=== PATIENT | male | born 2000 | race Caucasian/White ===

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

== ENCOUNTER 2020-02-14 10:07 | Observation (INO) | payer OTHER ==
[~2020-02-14] VITALS: Ht 182.9 cm; Wt 63.6 kg
[~2020-02-14 10:07] MED LIST: DOXY100T PO; HYDR-3164 PO
[2020-02-14 10:56] LABS: BILIRUBIN,URINE NEGATIVE (NEG); CLARITY,URINE CLEAR; COLOR,URINE YELLOW; NITRITE,URINE NEGATIVE (NEG); PROTEIN,URINE NEGATIVE (NEG-TRACE); UROBILINOGEN,URINE 0.2 mg/dL (0.2 mg/dL)
[2020-02-14 11:02] LABS: AMORPHOUS SEDIMENT,UR PRESENT /HPF; HYALINE CASTS, URINE OCCASIONAL /HPF; RBC,URINE 0 /HPF (0-2)
[2020-02-14 11:03] LABS: BACTERIA,URINE FEW /HPF (0-FEW)
--- NOTE | 2020-02-14 11:21 | PHYS DOC ---
Past Medical History Past Medical History: No Pertinent History Past Surgical History: No Surgical History Smoking Status: Never Smoker Alcohol Use: None Drug Use: Marijuana General Adult EDM: Chief Complaint: MALE UROGENITAL PROBLEMS HPI: HPI: Patient is a 19 year old male who presents with complaints of right upper and lower abdominal pain for the past 2 weeks, patient states he is not sure the exact date or time when the pain started nor he is not sure exactly what he was doing when the pain started. Patient reports his pain to 4/10 pain on a 1-10 pain scale. Patient denies any constipation or bowel problems stating his last normal BM was yesterday and reports going every day without problems. Patient denies any cough fever chills shortness of breath nasal congestion or visual changes. Patient denies any COVID 19 virus concerns nor does not wish to be tested today. Patient denies any chest pain or swelling of his extremities. Patient denies any nausea vomiting or diarrhea. Patient denies any current problems urinating, however reports that off-and-on over the past 2 weeks he has a hard time getting a stream started, however denies this problem today. Patient denies any back pain flank pain or pain in his joints. He denies any skin rashes, headaches, weaknesses, or sensory changes. Patient denies any increased urination or increased thirst. Patient denies any swelling of his glands. Patient denies any recent depressions or anxieties, patient denies HI SI. Patient states that he was seen here 2 years ago for the same thing and was told nothing was wrong and was sent home. Review of Systems: Review of Systems: Constitutional: Denies fever or chills. Eyes: Denies change in visual acuity. HENT: Denies nasal congestion or sore throat. Respiratory: Denies cough or shortness of breath. Cardiovascular: Denies chest pain or edema. GI: Denies nausea, vomiting, bloody stools or diarrhea. Patient complains of left upper and lower abdominal quadrant pain that increases with movement. : Denies current dysuria, however states that over the past 2 weeks he has had intermittent problems with starting a urine stream. Patient denies any testicular swelling or pain or discomfort. Musculoskeletal: Denies back pain or joint pain. Integument: Denies rash. Neurologic: Denies headache, focal weakness or sensory changes. Endocrine: Denies polyuria or polydipsia. Lymphatic: Denies swollen glands. Psychiatric: Denies depression or anxiety. Denies HI/SI. Heart Score: Risk Factors: Risk Factors: DM, Current or recent (<one month) smoker, HTN, HLP, family history of CAD, obesity. Risk Scores: Score 0 - 3: 2.5% MACE over next 6 weeks - Discharge Home Score 4 - 6: 20.3% MACE over next 6 weeks - Admit for Clinical Observation Score 7 - 10: 72.7% MACE over next 6 weeks - Early Invasive Strategies Family History: Family History: Patient states that his father has high blood pressure, paternal grandfather of aneurysm/stroke, maternal grandfather has of cardiac complications, mother has no significant health concerns other than arthritis pains. Current Medications: Patient denies taking any medications at home. Allergies: Allergies: Patient denies any allergies to medications, denies any seasonal allergies. Allergies Coded Allergies Type Severity Reaction Last Updated Verified No Known Drug Allergies 01/29/18 No Physical Exam: PE: Constitutional: Well developed, well nourished, no acute distress, non-toxic appearance. HENT: Normocephalic, atraumatic, bilateral external ears normal, oropharynx mo ist, no oral exudates, nose normal. Eyes: PERRLA, EOMI, conjunctiva normal, no discharge. Pupils 4 mm Neck: Normal range of motion, no tenderness, supple, no stridor. Cardiovascular:Heart rate regular rhythm, no murmur heart sounds S1-S2 Lungs & Thorax: Bilateral breath sounds clear to auscultation all lung castro. Abdomen: Bowel sounds normal, soft, no masses, no pulsatile masses. Patient has tenderness to palpation right lower quadrant no pain to the right upper quadrant, no rebound tenderness, negative psoas sign, negative Crowley sign. Skin: Warm, dry, no erythema, no rash. Back: No tenderness, no CVA tenderness. Extremities: No tenderness, no cyanosis, no clubbing, ROM intact, no edema. Neurologic: Alert and oriented X 3, normal motor function, normal sensory function, no focal deficits noted. Psychologic: Affect normal, judgement normal, mood normal. Current Patient Data: Labs: Laboratory Tests Test 02/14/20 10:30 Urine Collection Type Unknown Urine Color Yellow Urine Clarity Clear Urine pH 7.0 (<5.0-8.0) Urine Specific [place] 1.015 (1.000-1.030) Urine Protein Negative mg/dL (NEG-TRACE) Urine Glucose (UA) Negative mg/dL (NEG) Urine Ketones (Stick) Negative mg/dL (NEG) Urine Blood Negative (NEG) Urine Nitrite Negative (NEG) Urine Bilirubin Negative (NEG) Urine Urobilinogen Dipstick 0.2 mg/dL (0.2 mg/dL) Urine Leukocyte Esterase Trace (NEG) Urine RBC 0 /HPF (0-2) Urine WBC 5-10 /HPF (0-4) Urine Squamous Epithelial Cells Few /LPF Urine Amorphous Sediment Present /HPF Urine Bacteria Few /HPF (0-FEW) Urine Hyaline Casts Occasional /HPF Urine Mucus Slight /LPF Vital Signs: Vital Signs Date Time Temp Pulse Resp B/P (MAP) Pulse Ox O2 Delivery O2 Flow Rate FiO2 02/14/20 10:10 98.5 69 16 123/72 (89) 99 Room Air 98.5 EKG: EKG: [] Radiology/Procedures: Radiology/Procedures: PATIENT: LAMIN WATKINS ACCOUNT: [id number] : 2000 LOCATION: ER AGE: 19 SEX: M EXAM STATUS: REG ER ORD. PHYSICIAN: TAYE RASHEED APRN REASON: RIGHT UPPER AND LOWER ABDOMEN PAIN WITH PALPATION, DIFFICULTY URINATION PROCEDURE: CT ABD PELV W/ IV CONTRST ONLY CT ABD PELV W/ IV CONTRST ONLY History: Reason: RIGHT UPPER AND LOWER ABDOMEN PAIN WITH PALPATION, DIFFICULTY URINATION Comparison: 01/29/2018 Technique: After administration of intravenous contrast, helical CT of the abdomen and pelvis was performed from the lung bases through the ischial tuberosities. Coronal and sagittal reconstructions were obtained. 75 mL of Omnipaque 300 were used. One or more of the following dose reduction techniques were utilized: Automated exposure control (AEC), Adjustment of mA and/or kV according to patient size, Use of iterative reconstruction technique such as ASiR, CT scan done according to ALARA and image gently/image wisely Abdomen Findings: The visualized lung bases are clear. The liver, gallbladder, pancreas, spleen, and bilateral adrenal glands are normal. Symmetric renal enhancement. There is no focal renal mass. There is no hydronephrosis. Small bowel intussusception in the left hemiabdomen measuring approximately 7 cm in length. The visualized loops of large bowel are normal. There is no evidence of bowel obstruction. Appendix is normal. There is no free fluid. There is no mesenteric or retroperitoneal adenopathy. The abdominal aorta is normal in caliber. Small outpouching along the anterosuperior aspect of the bladder. Mild bladder wall thickening. No pelvic free fluid. There is no pelvic or inguinal adenopathy. There is no acute bony abnormality. IMPRESSION: 1. Mild circumferential bladder wall thickening, which could relate to underdistention or potentially cystitis. Consider urinalysis. 2. Small bowel intussusception in the left hemiabdomen measuring approximately 7 cm in length. This is of uncertain clinical significance, and can be seen as a transient/incidental phenomenon in a patient of this age. Correlate with clinical findings. 3. 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 Electronically signed by: Domonique Moya MD (02/14/2020 12:41 PM) [id number] DICTATED and SIGNED BY: DOMONIQUE MOYA MD DATE: 02/14/20 1241 Course & Med Decision Making: Course & Med Decision Making Pertinent Labs and Imaging studies reviewed. (See chart for details) 19-year-old male patient vital signs stable presented to the emergency department today with complaints of abdominal pain off and on for the past 2 weeks on his right upper and lower quadrants. Patient also reports he has a hard time getting a urine stream started intermittently over the past 2 weeks as well. Patient currently denied any urinary problems today, and denied any testicular pain or swelling or discomfort. Patient states that he has normal bowel movements every day and had a normal one yesterday and is not concerned for constipation. Patient's physical exam was concerning for possible appendicitis related to increased pain with palpation of the right lower quadrant. However patient had a negative psoas sign and negative Crowley sign. Patient had no rebound tenderness. Patient's bowel sounds were normal. Patient's testicular exam was not concerning for acute infectious process. CT did show a small bowel intussusception. Patient's blood work was concerning for leukopenia and neutropenia with a white blood cell count of 3.1 and neutrophil count of 1.5. Patient does not look toxic. Discussed findings with patient and recommendation for admission, patient was amendable to this plan. This case was discussed with Dr. Choe who agreed to see the patient but requested he be admitted under general medicine. Consulted and discussed patient case with Dr. Porras who agreed to take patient admission to [facility]. Dragon Disclaimer: Dragon Disclaimer: This electronic medical record was generated, in whole or in part, using a voice recognition dictation system. Departure Departure Impression: Primary Impression: Abdominal pain, right lower quadrant Additional Impressions: Intussusception of small bowel Leukopenia Qualified Codes: D72.819 - Decreased white blood cell count, unspecified Neutropenia Qualified Codes: D70.9 - Neutropenia, unspecified Disposition: 09 ADMITTED INPATIENT Admitting Physician: NELS (DR. PORRAS) Condition: STABLE Referrals: NO PCP (PCP) TAYE RASHEED APRN Feb 14, 2020 11:21
[2020-02-14 11:53] LABS: CALCIUM 8.8 mg/dL (8.5-10.1); CREATININE 1.1 mg/dL (0.7-1.3); GFR 86.2; POTASSIUM 3.9 mmol/L (3.5-5.1)
[2020-02-14 11:58] LABS: ALBUMIN/GLOBULIN RATIO 1.3 (1.0-1.7); TOTAL BILIRUBIN 0.4 mg/dL (0.2-1.0); TOTAL PROTEIN 7.2 g/dL (6.4-8.2)
[2020-02-14 12:00] LABS: BASO % 1 % (0-3); EOS % 1 % (0-3); HEMATOCRIT 41.3 % (39.0-53.0); HEMOGLOBIN 14.1 g/dL (13.0-17.5); LYMPH # 1.3 x10^3/uL (1.0-4.8); LYMPH % 42 % (24-48); MEAN CORPUSCULAR HEMOGLOBIN 30 pg (25-35); MEAN CORPUSCULAR HGB CONC 34 g/dL (31-37); MEAN CORPUSCULAR VOLUME 87 fL (79-100); MONO # 0.3 x10^3/uL (0.0-1.1); MONO % 9 % (0-9); NEUT # 1.5 x10^3/uL (1.8-7.7); NEUT % 48 % (31-73); PLATELET COUNT 190 x10^3/uL (140-400); RED BLOOD COUNT 4.73 x10^6/uL (4.30-5.70); RED CELL DISTRIBUTION WIDTH 13.1 % (11.5-14.5); WHITE BLOOD COUNT 3.1 x10^3/uL (4.0-11.0)
[2020-02-14] MEDS ORDERED: CONTRAST GIVEN. MC PRN (12:00)
[2020-02-14] MEDS ORDERED: IOHEXOL 300 MG/ML 100ML VIAL. IV ONE (12:30)
--- NOTE | 2020-02-14 12:45 | RAD ---
CT ABD PELV W/ IV CONTRST ONLY History: Reason: RIGHT UPPER AND LOWER ABDOMEN PAIN WITH PALPATION, DIFFICULTY URINATION Comparison: 01/29/2018 Technique: After administration of intravenous contrast, helical CT of the abdomen and pelvis was performed from the lung bases through the ischial tuberosities. Coronal and sagittal reconstructions were obtained. 75 mL of Omnipaque 300 were used. One or more of the following dose reduction techniques were utilized: Automated exposure control (AEC), Adjustment of mA and/or kV according to patient size, Use of iterative reconstruction technique such as ASiR, CT scan done according to ALARA and image gently/image wisely Abdomen Findings: The visualized lung bases are clear. The liver, gallbladder, pancreas, spleen, and bilateral adrenal glands are normal. Symmetric renal enhancement. There is no focal renal mass. There is no hydronephrosis. Small bowel intussusception in the left hemiabdomen measuring approximately 7 cm in length. The visualized loops of large bowel are normal. There is no evidence of bowel obstruction. Appendix is normal. There is no free fluid. There is no mesenteric or retroperitoneal adenopathy. The abdominal aorta is normal in caliber. Small outpouching along the anterosuperior aspect of the bladder. Mild bladder wall thickening. No pelvic free fluid. There is no pelvic or inguinal adenopathy. There is no acute bony abnormality. IMPRESSION: 1. Mild circumferential bladder wall thickening, which could relate to underdistention or potentially cystitis. Consider urinalysis. 2. Small bowel intussusception in the left hemiabdomen measuring approximately 7 cm in length. This is of uncertain clinical significance, and can be seen as a transient/incidental phenomenon in a patient of this age. Correlate with clinical findings. 3. 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 Electronically signed by: Jaziel Moya MD (02/14/2020 12:41 PM) [id number]
[2020-02-14] MEDS ORDERED: DOCUSATE SODIUM 100 MG CAPSULE. PO PRN (14:45)
[2020-02-14] MEDS ORDERED: ACETAMINOPHEN 325 MG TABLET. PO PRN (14:45)
[2020-02-14] MEDS ORDERED: ONDANSETRON PF 4 MG/2 ML VIAL. IV PRN (14:45)
[2020-02-14] MEDS ORDERED: LORazepam 0.5 MG TABLET PO PRN (14:45)
[2020-02-14] MEDS ORDERED: ZOLPIDEM 5 MG TABLET. PO PRN (14:45)
[2020-02-14] MEDS ORDERED: ALBUTEROL SULFATE 2.5 MG/3 ML NEBU. NEB PRN (14:45)
[2020-02-14] MEDS ORDERED: guaiFENesin ORAL 200 MG/10 ML LIQUID. PO PRN (14:45)
[2020-02-14] MEDS ORDERED: HYDROcodone/APAP 5/325MG 1 TAB TABLET PO PRN (14:45)
[2020-02-14] MEDS ORDERED: KETOROLAC 15 MG/ML VIAL. IVP PRN (15:00)
[2020-02-14] MEDS ORDERED: ENOXAPARIN 40 MG/0.4 ML SYRINGE. SQ SCH (15:00)
--- NOTE | 2020-02-14 15:36 | PDOC1 ---
History and Physical Date of Admission Date of Admission 02/14/2020 Identification/Chief Complaint Chief Complaint My stomach hurts Source Source: Chart review, Patient History of Present Illness History of Present Illness Patient is a 19 year old male whto was in his usual state of health until the morning of his admission when he presented sudden onset of right lower quadrant pain , patient denied dietary transgression, no sick contacts, no travel outside the area, patient denies fever chills or diaphoresis, no hematochezia, no association with food intake, patient at the time of my visit is in no apparent distress, he was flund to have an intussuseption on CT abdomen reason why we were asked to admit patient. Patient had a simialr episode more or less 2 years ago and feel it is a reocurrence of the previous episode. he was treated with IV antibiotics on his past episode. No definitive diagnosis was given to alex at that time. Patient was informed about the different avenues that need to be examined so we can try to alleviate the patien's suffering. He denies history of Crohn or UC, no anorexia no loss of common sense or smell. Patient will be admitted for further evaluation and treatment Past Medical History Past Medical History No pertinent past medical history Past Surgical History Past Surgical History: Other Family History Family History: No Significant Social History Smoke: No Drugs: Marijuana Current Problem List Problem List Problems Medical Problems: (1) Abdominal pain, right lower quadrant Status: Acute (2) Intussusception of small bowel Status: Acute (3) Leukopenia Status: Acute (4) Neutropenia Status: Acute Current Medications Current Medications Current Medications Medications (Trade) Dose Ordered Sig/Arielle Start Time Stop Time Status Last Admin Dose Admin Acetaminophen (Tylenol) 650 mg PRN Q4HRS PRN 02/14/20 14:45 Acetaminophen/ Hydrocodone Bitart (Lortab 5/325) 1 tab PRN Q6HRS PRN 02/14/20 14:45 Albuterol Sulfate (Ventolin Neb Soln) 2.5 mg PRN Q4HRS PRN 02/14/20 14:45 Docusate Sodium (Colace) 100 mg PRN BID PRN 02/14/20 14:45 Enoxaparin Sodium (Lovenox 40mg Syringe) 40 mg Q24H 02/14/20 15:00 Guaifenesin (Robitussin) 200 mg PRN Q4HRS PRN 02/14/20 14:45 Info (CONTRAST GIVEN -- Rx MONITORING) 1 each PRN DAILY PRN 02/14/20 12:00 02/16/20 11:59 Iohexol (Omnipaque 300 Mg/ml) 75 ml 1X ONCE 02/14/20 12:30 02/14/20 12:31 DC 02/14/20 12:25 75 ML Ketorolac Tromethamine (Toradol 15mg Vial) 15 mg PRN Q6HRS PRN 02/14/20 15:00 02/19/20 14:59 Lorazepam (Ativan) 0.5 mg PRN Q4HRS PRN 02/14/20 14:45 Ondansetron HCl (Zofran) 4 mg PRN Q4HRS PRN 02/14/20 14:45 Sodium Chloride 1,000 ml @ 100 mls/hr Q10H 02/14/20 14:36 Zolpidem Tartrate (Ambien) 5 mg PRN QHS PRN 02/14/20 14:45 Allergies Allergies Allergies Coded Allergies Type Severity Reaction Last Updated Verified No Known Drug Allergies 01/29/18 No ROS Review of System CONSTITUTIONAL: No fever or chills EYES: No recent changes SKIN: No rash or itching CARDIOVASCULAR: No chest pain, syncope, palpitations, or edema RESPIRATORY: No SOB or cough GASTROINTESTINAL: No nausea, vomiting or abdominal pain NEUROLOGICAL: No headaches or weakness ENDOCRINE: No cold or heat intolerance GENITOURINARY: No urgency or frequency of urination MUSCULOSKELETAL: No back pain or joint pain LYMPHATICS: No enlarged lymph nodes PSYCHIATRIC: No anxiety or depression Physical Exam Physical Exam GEN.: No apparent distress. Alert and oriented. HEENT: Head is normocephalic, atraumatic NECK: Supple. LUNGS: Clear to auscultation. HEART: RRR, S1, S2 present. Peripheral pulses intact ABDOMEN: Soft, nontender. Positive bowel sounds. EXTREMITIES: Without any cyanosis. NEUROLOGIC: Normal speech, normal tone PSYCHIATRIC: Normal affect, normal mood. SKIN: No ulcerations Vitals Vitals Vital Signs Date Time Temp Pulse Resp B/P (MAP) Pulse Ox O2 Delivery O2 Flow Rate FiO2 02/14/20 15:20 60 16 110/64 (79) 99 Room Air 10/6/20 10:10 98.5 98.5 Labs Labs Laboratory Tests Test 02/14/20 10:30 02/14/20 11:33 02/14/20 14:32 Urine Collection Type Unknown Urine Color Yellow Urine Clarity Clear Urine pH 7.0 (<5.0-8.0) Urine Specific [place] 1.015 (1.000-1.030) Urine Protein Negative mg/dL (NEG-TRACE) Urine Glucose (UA) Negative mg/dL (NEG) Urine Ketones (Stick) Negative mg/dL (NEG) Urine Blood Negative (NEG) Urine Nitrite Negative (NEG) Urine Bilirubin Negative (NEG) Urine Urobilinogen Dipstick 0.2 mg/dL (0.2 mg/dL) Urine Leukocyte Esterase Trace (NEG) Urine RBC 0 /HPF (0-2) Urine WBC 5-10 /HPF (0-4) Urine Squamous Epithelial Cells Few /LPF Urine Amorphous Sediment Present /HPF Urine Bacteria Few /HPF (0-FEW) Urine Hyaline Casts Occasional /HPF Urine Mucus Slight /LPF White Blood Count 3.1 x10^3/uL (4.0-11.0) Red Blood Count 4.73 x10^6/uL (4.30-5.70) Hemoglobin 14.1 g/dL (13.0-17.5) Hematocrit 41.3 % (39.0-53.0) Mean Corpuscular Volume 87 fL (79-100) Mean Corpuscular Hemoglobin 30 pg (25-35) Mean Corpuscular Hemoglobin Concent 34 g/dL (31-37) Red Cell Distribution Width 13.1 % (11.5-14.5) Platelet Count 190 x10^3/uL (140-400) Neutrophils (%) (Auto) 48 % (31-73) Lymphocytes (%) (Auto) 42 % (24-48) Monocytes (%) (Auto) 9 % (0-9) Eosinophils (%) (Auto) 1 % (0-3) Basophils (%) (Auto) 1 % (0-3) Neutrophils # (Auto) 1.5 x10^3/uL (1.8-7.7) Lymphocytes # (Auto) 1.3 x10^3/uL (1.0-4.8) Monocytes # (Auto) 0.3 x10^3/uL (0.0-1.1) Eosinophils # (Auto) 0.0 x10^3/uL (0.0-0.7) Basophils # (Auto) 0.0 x10^3/uL (0.0-0.2) Sodium Level 142 mmol/L (136-145) Potassium Level 3.9 mmol/L (3.5-5.1) Chloride Level 105 mmol/L (98-107) Carbon Dioxide Level 31 mmol/L (21-32) Anion Gap 6 (6-14) Blood Urea Nitrogen 12 mg/dL (8-26) Creatinine 1.1 mg/dL (0.7-1.3) Estimated GFR (Cockcroft-Gault) 86.2 BUN/Creatinine Ratio 11 (6-20) Glucose Level 92 mg/dL (70-99) Calcium Level 8.8 mg/dL (8.5-10.1) Total Bilirubin 0.4 mg/dL (0.2-1.0) Aspartate Amino Transf (AST/SGOT) 14 U/L (15-37) Alanine Aminotransferase (ALT/SGPT) 15 U/L (16-63) Alkaline Phosphatase 58 U/L (46-116) Total Protein 7.2 g/dL (6.4-8.2) Albumin 4.0 g/dL (3.4-5.0) Albumin/Globulin Ratio 1.3 (1.0-1.7) Lipase 347 U/L (73-393) SARS-CoV-2 Antigen (Rapid) Negative (NEGATIVE) Laboratory Tests Test 02/14/20 10:30 02/14/20 11:33 02/14/20 14:32 Urine Collection Type Unknown Urine Color Yellow Urine Clarity Clear Urine pH 7.0 (<5.0-8.0) Urine Specific [place] 1.015 (1.000-1.030) Urine Protein Negative mg/dL (NEG-TRACE) Urine Glucose (UA) Negative mg/dL (NEG) Urine Ketones (Stick) Negative mg/dL (NEG) Urine Blood Negative (NEG) Urine Nitrite Negative (NEG) Urine Bilirubin Negative (NEG) Urine Urobilinogen Dipstick 0.2 mg/dL (0.2 mg/dL) Urine Leukocyte Esterase Trace (NEG) Urine RBC 0 /HPF (0-2) Urine WBC 5-10 /HPF (0-4) Urine Squamous Epithelial Cells Few /LPF Urine Amorphous Sediment Present /HPF Urine Bacteria Few /HPF (0-FEW) Urine Hyaline Casts Occasional /HPF Urine Mucus Slight /LPF White Blood Count 3.1 x10^3/uL (4.0-11.0) Red Blood Count 4.73 x10^6/uL (4.30-5.70) Hemoglobin 14.1 g/dL (13.0-17.5) Hematocrit 41.3 % (39.0-53.0) Mean Corpuscular Volume 87 fL (79-100) Mean Corpuscular Hemoglobin 30 pg (25-35) Mean Corpuscular Hemoglobin Concent 34 g/dL (31-37) Red Cell Distribution Width 13.1 % (11.5-14.5) Platelet Count 190 x10^3/uL (140-400) Neutrophils (%) (Auto) 48 % (31-73) Lymphocytes (%) (Auto) 42 % (24-48) Monocytes (%) (Auto) 9 % (0-9) Eosinophils (%) (Auto) 1 % (0-3) Basophils (%) (Auto) 1 % (0-3) Neutrophils # (Auto) 1.5 x10^3/uL (1.8-7.7) Lymphocytes # (Auto) 1.3 x10^3/uL (1.0-4.8) Monocytes # (Auto) 0.3 x10^3/uL (0.0-1.1) Eosinophils # (Auto) 0.0 x10^3/uL (0.0-0.7) Basophils # (Auto) 0.0 x10^3/uL (0.0-0.2) Sodium Level 142 mmol/L (136-145) Potassium Level 3.9 mmol/L (3.5-5.1) Chloride Level 105 mmol/L (98-107) Carbon Dioxide Level 31 mmol/L (21-32) Anion Gap 6 (6-14) Blood Urea Nitrogen 12 mg/dL (8-26) Creatinine 1.1 mg/dL (0.7-1.3) Estimated GFR (Cockcroft-Gault) 86.2 BUN/Creatinine Ratio 11 (6-20) Glucose Level 92 mg/dL (70-99) Calcium Level 8.8 mg/dL (8.5-10.1) Total Bilirubin 0.4 mg/dL (0.2-1.0) Aspartate Amino Transf (AST/SGOT) 14 U/L (15-37) Alanine Aminotransferase (ALT/SGPT) 15 U/L (16-63) Alkaline Phosphatase 58 U/L (46-116) Total Protein 7.2 g/dL (6.4-8.2) Albumin 4.0 g/dL (3.4-5.0) Albumin/Globulin Ratio 1.3 (1.0-1.7) Lipase 347 U/L (73-393) SARS-CoV-2 Antigen (Rapid) Negative (NEGATIVE) VTE Prophylaxis Ordered VTE Prophylaxis Devices: Yes VTE Pharmacological Prophylaxi: Yes Assessment/Plan Assessment/Plan Intussuseption Leukopenia with no clincal significance at the moment Plan follow conulstant recommendations. pain management symptomstic relief of symptoms. DVT prophylaxiss with lovenox Justifications for Admission Other Justification KRISTIN MACK MD Feb 14, 2020 15:36
[2020-02-14] MEDS: IV NORMAL SALINE 1000ML BAG 1,000 ML IV SCH (16:02)
--- NOTE | 2020-02-14 17:02 | PDOC2 ---
CONSULT Date of Consult Date of Consult DATE: 02/14/20 TIME: 16:57 History of Present Illness Reason for Visit: The patient is a 19 year old male who reported to the ER with RLQ pain. He states he's had this pain "off and on" for the last couple of weeks. Earlier this morning the pain seemed more severe, but it has subsided and he is current pain free. The pain usually lasts 5-10 minutes and recurs over 5X day. He states the pain is worse with movements and relieved with resting. He denies nausea, vomiting, or changes in bowel function. Past Medical History Past Medical History denies Past Surgical History Past Surgical History denies Past Surgical History: Other Family History Family History: No Significant Social History No Drugs: Marijuana Current Problem List Problem List Problems Medical Problems: (1) Abdominal pain, right lower quadrant Status: Acute (2) Intussusception of small bowel Status: Acute (3) Leukopenia Status: Acute (4) Neutropenia Status: Acute Current Medications Current Medications Current Medications Iohexol (Omnipaque 300 Mg/ml) 75 ml 1X ONCE IV Last administered on 02/14/20at 12:25; Start 02/14/20 at 12:30; Stop 02/14/20 at 12:31; Status DC Info (CONTRAST GIVEN -- Rx MONITORING) 1 each PRN DAILY PRN MC SEE COMMENTS; Start 02/14/20 at 12:00; Stop 02/16/20 at 11:59 Acetaminophen/ Hydrocodone Bitart (Lortab 5/325) 1 tab PRN Q6HRS PRN PO PAIN; Start 02/14/20 at 14:45 Sodium Chloride 1,000 ml @ 100 mls/hr Q10H IV Last administered on 02/14/20at 16:02; Start 02/14/20 at 14:36 Ondansetron HCl (Zofran) 4 mg PRN Q4HRS PRN IV NAUSEA/VOMITING; Start 02/14/20 at 14:45 Zolpidem Tartrate (Ambien) 5 mg PRN QHS PRN PO INSOMNIA; Start 02/14/20 at 14:45 Acetaminophen (Tylenol) 650 mg PRN Q4HRS PRN PO TEMP OVER 100.4F OR MILD PAIN; Start 02/14/20 at 14:45 Docusate Sodium (Colace) 100 mg PRN BID PRN PO HARD STOOLS; Start 02/14/20 at 14:45 Albuterol Sulfate (Ventolin Neb Soln) 2.5 mg PRN Q4HRS PRN NEB SHORTNESS OF BREATH; Start 02/14/20 at 14:45 Guaifenesin (Robitussin) 200 mg PRN Q4HRS PRN PO COUGH; Start 02/14/20 at 14:45 Lorazepam (Ativan) 0.5 mg PRN Q4HRS PRN PO ANXIETY / AGITATION; Start 02/14/20 at 14:45 Enoxaparin Sodium (Lovenox 40mg Syringe) 40 mg Q24H SQ Last administered on 02/14/20at 16:01; Start 02/14/20 at 15:00 Ketorolac Tromethamine (Toradol 15mg Vial) 15 mg PRN Q6HRS PRN IVP moderate to severe pain; Start 02/14/20 at 15:00; Stop 02/19/20 at 14:59 Active Scripts Active [place] 5-325 Tablet (Acetaminophen/Hydrocodone Bitart) 1 Each Tablet 1 Tab PO PRN Q6HRS PRN Doxycycline Hyclate 100 Mg Tablet 1 Tab PO BID Allergies Allergies: Coded Allergies: No Known Drug Allergies (Unverified , 01/29/18) ROS General: No: Chills, Night Sweats, Fatigue, Malaise, Appetite, Other PSYCHOLOGICAL ROS: No: Anxiety, Behavioral Disorder, Concentration difficultie, Decreased libido, Depression, Disorientation, Hallucinations, Hostility, Irritablity, Memory difficulties, Mood Swings, Obsessive thoughts, Physical abuse, Sexual abuse, Sleep disturbances, Suicidal ideation, Other Eyes: No Blurry vision, No Decreased vision, No Double vision, No Dry eyes, No Excessive tearing, No Eye Pain, No Itchy Eyes, No Loss of vision, No Photophobia, No Scotomata, No Uses contacts, No Uses glasses, No Other HEENT: No: Heacaches, Visual Changes, Hearing change, Nasal congestion, Nasal discharge, Oral lesions, Sinus pain, Sore Throat, Epistaxis, Sneezing, Snoring, Tinnitus, Vertigo, Vocal changes, Other ALLERGY AND IMMUNOLOGY: No: Hives, Insect Bite Sensitivity, Itchy/Watery Eyes, Nasal Congestion, Post Nasal Drip, Seasonal Allergies, Other Hematological and Lymphatic: No: Bleeding Problems, Blood Clots, Blood Transfusions, Brusing, Night Sweats, Pallor, Swollen Lymph Nodes, Other ENDOCRINE: No: Breast Changes, Galactorrhea, Hair Pattern Changes, Hot Flashes, Malaise/lethargy, Mood Swings, Palpitations, Polydipsia/polyuria, Skin Changes, Temperature Intolerance, Unexpected Weight Changes, Other Respiratory: No: Cough, Hemoptysis, Orthopnea, Pleuritic Pain, Shortness of breath, SOB with excertion, Sputum Changes, Stridor, Tachypnea, Wheezing, Other Cardiovascular: No Chest Pain, No Palpitations, No Orthopnea, No Paroxysmal Noc. Dyspnea, No Edema, No Lt Headedness, No Other Gastrointestinal: Yes Abdominal Pain Genitourinary: No Dysuria, No Frequency, No Incontinence, No Hematuria, No Retention, No Discharge, No Urgency, No Pain, No Flank Pain, No Other, No , No , No , No , No , No , No Musculoskeletal: No Gait Disturbance, No Joint Pain, No Joint Stiffness, No Joint Swelling, No Muscle Pain, No Muscular Weakness, No Pain In:, No Swelling In:, No Other Neurological: No Behavorial Changes, No Bowel/Bladder ControlChng, No Confusion, No Dizziness, No Gait Disturbance, No Headaches, No Impaired Coord/balance, No Memory Loss, No Numbness/Tingling, No Seizures, No Speech Prob lems, No Tremors, No Visual Changes, No Weakness, No Other Skin: No Dry Skin, No Eczema, No Hair Changes, No Lumps, No Mole Changes, No Mottling, No Nail Changes, No Pruritus, No Rash, No Skin Lesion Changes, No Other, No Acne Physical Exam General: Alert, Oriented X3, Cooperative, No acute distress HEENT: Atraumatic Lungs: Clear to auscultation Heart: Regular rate Abdomen: Soft, No tenderness, No masses Extremities: No clubbing, No cyanosis Skin: No rashes Neuro: Normal speech Psych/Mental Status: Mental status NL MUSCULOSKELETAL: No joint tenderness, No deformity Vitals VITALS Vital Signs Date Time Temp Pulse Resp B/P (MAP) Pulse Ox O2 Delivery O2 Flow Rate FiO2 02/14/20 16:08 99 Room Air 02/14/20 16:01 60 16 115/72 (86) 02/14/20 10:10 98.5 98.5 Labs Labs Laboratory Tests Test 02/14/20 10:30 02/14/20 11:33 02/14/20 14:32 Urine Collection Type Unknown Urine Color Yellow Urine Clarity Clear Urine pH 7.0 (<5.0-8.0) Urine Specific [place] 1.015 (1.000-1.030) Urine Protein Negative mg/dL (NEG-TRACE) Urine Glucose (UA) Negative mg/dL (NEG) Urine Ketones (Stick) Negative mg/dL (NEG) Urine Blood Negative (NEG) Urine Nitrite Negative (NEG) Urine Bilirubin Negative (NEG) Urine Urobilinogen Dipstick 0.2 mg/dL (0.2 mg/dL) Urine Leukocyte Esterase Trace (NEG) Urine RBC 0 /HPF (0-2) Urine WBC 5-10 /HPF (0-4) Urine Squamous Epithelial Cells Few /LPF Urine Amorphous Sediment Present /HPF Urine Bacteria Few /HPF (0-FEW) Urine Hyaline Casts Occasional /HPF Urine Mucus Slight /LPF White Blood Count 3.1 x10^3/uL (4.0-11.0) Red Blood Count 4.73 x10^6/uL (4.30-5.70) Hemoglobin 14.1 g/dL (13.0-17.5) Hematocrit 41.3 % (39.0-53.0) Mean Corpuscular Volume 87 fL (79-100) Mean Corpuscular Hemoglobin 30 pg (25-35) Mean Corpuscular Hemoglobin Concent 34 g/dL (31-37) Red Cell Distribution Width 13.1 % (11.5-14.5) Platelet Count 190 x10^3/uL (140-400) Neutrophils (%) (Auto) 48 % (31-73) Lymphocytes (%) (Auto) 42 % (24-48) Monocytes (%) (Auto) 9 % (0-9) Eosinophils (%) (Auto) 1 % (0-3) Basophils (%) (Auto) 1 % (0-3) Neutrophils # (Auto) 1.5 x10^3/uL (1.8-7.7) Lymphocytes # (Auto) 1.3 x10^3/uL (1.0-4.8) Monocytes # (Auto) 0.3 x10^3/uL (0.0-1.1) Eosinophils # (Auto) 0.0 x10^3/uL (0.0-0.7) Basophils # (Auto) 0.0 x10^3/uL (0.0-0.2) Sodium Level 142 mmol/L (136-145) Potassium Level 3.9 mmol/L (3.5-5.1) Chloride Level 105 mmol/L (98-107) Carbon Dioxide Level 31 mmol/L (21-32) Anion Gap 6 (6-14) Blood Urea Nitrogen 12 mg/dL (8-26) Creatinine 1.1 mg/dL (0.7-1.3) Estimated GFR (Cockcroft-Gault) 86.2 BUN/Creatinine Ratio 11 (6-20) Glucose Level 92 mg/dL (70-99) Calcium Level 8.8 mg/dL (8.5-10.1) Total Bilirubin 0.4 mg/dL (0.2-1.0) Aspartate Amino Transf (AST/SGOT) 14 U/L (15-37) Alanine Aminotransferase (ALT/SGPT) 15 U/L (16-63) Alkaline Phosphatase 58 U/L (46-116) Total Protein 7.2 g/dL (6.4-8.2) Albumin 4.0 g/dL (3.4-5.0) Albumin/Globulin Ratio 1.3 (1.0-1.7) Lipase 347 U/L (73-393) SARS-CoV-2 Antigen (Rapid) Negative (NEGATIVE) Laboratory Tests Test 02/14/20 10:30 02/14/20 11:33 02/14/20 14:32 Urine Collection Type Unknown Urine Color Yellow Urine Clarity Clear Urine pH 7.0 (<5.0-8.0) Urine Specific [place] 1.015 (1.000-1.030) Urine Protein Negative mg/dL (NEG-TRACE) Urine Glucose (UA) Negative mg/dL (NEG) Urine Ketones (Stick) Negative mg/dL (NEG) Urine Blood Negative (NEG) Urine Nitrite Negative (NEG) Urine Bilirubin Negative (NEG) Urine Urobilinogen Dipstick 0.2 mg/dL (0.2 mg/dL) Urine Leukocyte Esterase Trace (NEG) Urine RBC 0 /HPF (0-2) Urine WBC 5-10 /HPF (0-4) Urine Squamous Epithelial Cells Few /LPF Urine Amorphous Sediment Present /HPF Urine Bacteria Few /HPF (0-FEW) Urine Hyaline Casts Occasional /HPF Urine Mucus Slight /LPF White Blood Count 3.1 x10^3/uL (4.0-11.0) Red Blood Count 4.73 x10^6/uL (4.30-5.70) Hemoglobin 14.1 g/dL (13.0-17.5) Hematocrit 41.3 % (39.0-53.0) Mean Corpuscular Volume 87 fL (79-100) Mean Corpuscular Hemoglobin 30 pg (25-35) Mean Corpuscular Hemoglobin Concent 34 g/dL (31-37) Red Cell Distribution Width 13.1 % (11.5-14.5) Platelet Count 190 x10^3/uL (140-400) Neutrophils (%) (Auto) 48 % (31-73) Lymphocytes (%) (Auto) 42 % (24-48) Monocytes (%) (Auto) 9 % (0-9) Eosinophils (%) (Auto) 1 % (0-3) Basophils (%) (Auto) 1 % (0-3) Neutrophils # (Auto) 1.5 x10^3/uL (1.8-7.7) Lymphocytes # (Auto) 1.3 x10^3/uL (1.0-4.8) Monocytes # (Auto) 0.3 x10^3/uL (0.0-1.1) Eosinophils # (Auto) 0.0 x10^3/uL (0.0-0.7) Basophils # (Auto) 0.0 x10^3/uL (0.0-0.2) Sodium Level 142 mmol/L (136-145) Potassium Level 3.9 mmol/L (3.5-5.1) Chloride Level 105 mmol/L (98-107) Carbon Dioxide Level 31 mmol/L (21-32) Anion Gap 6 (6-14) Blood Urea Nitrogen 12 mg/dL (8-26) Creatinine 1.1 mg/dL (0.7-1.3) Estimated GFR (Cockcroft-Gault) 86.2 BUN/Creatinine Ratio 11 (6-20) Glucose Level 92 mg/dL (70-99) Calcium Level 8.8 mg/dL (8.5-10.1) Total Bilirubin 0.4 mg/dL (0.2-1.0) Aspartate Amino Transf (AST/SGOT) 14 U/L (15-37) Alanine Aminotransferase (ALT/SGPT) 15 U/L (16-63) Alkaline Phosphatase 58 U/L (46-116) Total Protein 7.2 g/dL (6.4-8.2) Albumin 4.0 g/dL (3.4-5.0) Albumin/Globulin Ratio 1.3 (1.0-1.7) Lipase 347 U/L (73-393) SARS-CoV-2 Antigen (Rapid) Negative (NEGATIVE) Images Images CT abdomen: IMPRESSION: 1. Mild circumferential bladder wall thickening, which could relate to underdistention or potentially cystitis. Consider urinalysis. 2. Small bowel intussusception in the left hemiabdomen measuring approximately 7 cm in length. This is of uncertain clinical significance, and can be seen as a transient/incidental phenomenon in a patient of this age. Correlate with clinical findings. 3. 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 Assessment/Plan Assessment/Plan A/P) Intermittent RLQ pain, currently pain free and exam benign. Incidental small bowel intussusception noted on CT scan in left upper quadrant, likely unrelated to pain which is in RLQ. Possibly transient with no secondary obstruction. Plan for SB series in AM to further evaluate. If normal then will start diet. MISBAH BROWN MD Feb 14, 2020 17:02
[2020-02-14] MEDS ORDERED: IOHEXOL 300 MG/ML 100ML VIAL. ONE (17:08)
[2020-02-14 17:55] VITALS: BP 126/76
[2020-02-14 19:00] VITALS: BP 111/59
[2020-02-14] MEDS ORDERED: INFLUENZA VAX SCREEN BY RX. MC PRN (19:15)
[2020-02-14] MEDS ORDERED: FLU VACC QS 2020-21(6MOS+)/PF 0.5 ML SYRINGE. VAX IM ONE (21:00)
[2020-02-14 22:51] VITALS: BP 112/63
[2020-02-15] MEDS: IV NORMAL SALINE 1000ML BAG 1,000 ML IV SCH ×2 (02:50→10:36)
[2020-02-15 03:00] VITALS: BP 120/64
[2020-02-15 07:00] VITALS: BP 104/60
[2020-02-15] MEDS ORDERED: BARIUM SULFATE 60% 355 ML SUSP PO ONE (07:45)
--- NOTE | 2020-02-15 08:47 | PDOC ---
PROGRESS NOTES Date of Service: DATE: 02/15/20 TIME: 08:46 Chief Complaint Chief Complaint VTE Prophylaxis Ordered VTE Prophylaxis Devices: Yes VTE Pharmacological Prophylaxi: Yes discharge dx Assessment/Plan Intussuseption ON CT Small bowel intussusception in the left hemiabdomen measuring approximately 7 cm in length. This is of uncertain clinical significance, and can be seen as a transient/incidental phenomenon in a patient of this age. Normal small bowel SERIES . No evidence of intussusception. 02-14 Leukopenia TO SEE pcp soon about this Plan follow conulstant recommendations. pain management symptomstic relief of symptoms. DVT prophylaxiss with lovenox d/c home 02-14 d/c planning 25 min Justifications for Admission Justifications for Admission Other Justification History of Present Illness History of Present Illness History of Present Illness History of Present Illness Patient is a 19 year old male whto was in his usual state of health until the morning of his admission when he presented sudden onset of right lower quadrant pain , patient denied dietary transgression, no sick contacts, no travel outside the area, patient denies fever chills or diaphoresis, no hematochezia, no association with food intake, patient at the time of my visit is in no apparent distress, he was flund to have an intussuseption on CT abdomen reason why we were asked to admit patient. Patient had a simialr episode more or less 2 years ago and feel it is a reocurrence of the previous episode. he was treated with IV antibiotics on his past episode. No definitive diagnosis was given to alex at that time. Patient was informed about the different avenues that need to be examined so we can try to alleviate the patien's suffering. He denies history of Crohn or UC, no anorexia no loss of common sense or smell. Patient will be admitted for further evaluation and treatment Past Medical History Past Medical History No pertinent past medical history Past Surgical History Past Surgical History: Other Family History Family History: No Significant Social History Smoke: No Drugs: Marijuana Current Problem List Problem List Problems Medical Problems: (1) Abdominal pain, right lower quadrant Status: Acute (2) Intussusception of small bowel Status: Acute (3) Leukopenia Status: Acute (4) Neutropenia Status: Acute Vitals Vitals Vital Signs Date Time Temp Pulse Resp B/P (MAP) Pulse Ox O2 Delivery O2 Flow Rate FiO2 02/15/20 07:00 98.4 64 20 104/60 (75) 98 Room Air 98.4 Physical Exam General: Alert, Oriented X3, Cooperative, No acute distress Heart: Regular rate Lungs: Clear Abdomen: Normal bowel sounds, Soft, No tenderness, No masses Extremities: No clubbing, No cyanosis Skin: No rashes, No breakdown Labs LABS Signed PATIENT: LAMIN WATKINS ACCOUNT: [id number] : 2000 LOCATION: [address] [place] [address] AGE: 19 SEX: M EXAM STATUS: ADM IN ORD. PHYSICIAN: MISBAH BROWN MD REASON: intussusception noted on CT scan/ 3.0 MIN FLUORO, 13 FLUORO IMAGES SENT PROCEDURE: SMALL BOWEL SERIES EXAM: SMALL BOWEL SERIES 02/15/2020 5:00 AM CLINICAL INDICATION:Intussusception on CT COMPARISON:CT abdomen and pelvis 02/14/2020 TECHNIQUE:Shell M[employer] image was obtained. The patient drank barium and serial overhead radiographs were obtained at 20 minute intervals. Intermittent fluoroscopy with compression of the small bowel was performed. FINDINGS:No evidence of intussusception. Small bowel is normal in appearance. Loops of small bowel in the left upper quadrant disperse normally with compression. No small bowel obstruction. Barium reaches the colon by 80 minutes. Total fluoroscopic time 3 minutes. 13 images acquired. IMPRESSION:Normal small bowel. No evidence of intussusception. Electronically signed by: Alba Dunn MD (02/15/2020 10:42 AM) [id number] DICTATED and SIGNED BY: ALBA DUNN MD DATE: 02/15/[address] ABD PELV W/ IV CONTRST ONLY History: Reason: RIGHT UPPER AND LOWER ABDOMEN PAIN WITH PALPATION, DIFFICULTY URINATION Comparison: 01/29/2018 Technique: After administration of intravenous contrast, helical CT of the abdomen and pelvis was performed from the lung bases through the ischial tuberosities. Coronal and sagittal reconstructions were obtained. 75 mL of Omnipaque 300 were used. One or more of the following dose reduction techniques were utilized: Automated exposure control (AEC), Adjustment of mA and/or kV according to patient size, Use of iterative reconstruction technique such as ASiR, CT scan done according to ALARA and image gently/image wisely Abdomen Findings: The visualized lung bases are clear. The liver, gallbladder, pancreas, spleen, and bilateral adrenal glands are normal. Symmetric renal enhancement. There is no focal renal mass. There is no hydronephrosis. Small bowel intussusception in the left hemiabdomen measuring approximately 7 cm in length. The visualized loops of large bowel are normal. There is no evidence of bowel obstruction. Appendix is normal. There is no free fluid. There is no mesenteric or retroperitoneal adenopathy. The abdominal aorta is normal in caliber. Small outpouching along the anterosuperior aspect of the bladder. Mild bladder wall thickening. No pelvic free fluid. There is no pelvic or inguinal adenopathy. There is no acute bony abnormality. IMPRESSION: 1. Mild circumferential bladder wall thickening, which could relate to underdistention or potentially cystitis. Consider urinalysis. 2. Small bowel intussusception in the left hemiabdomen measuring approximately 7 cm in length. This is of uncertain clinical significance, and can be seen as a transient/incidental phenomenon in a patient of this age. Correlate with clinical findings. 3. 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 Electronically signed by: Domonique Moya MD (02/14/2020 12:41 PM) [id number] DICTATED and SIGNED BY: DOMONIQUE MOYA MD Laboratory Tests Test 02/14/20 10:30 02/14/20 11:33 02/14/20 14:32 Urine Collection Type Unknown Urine Color Yellow Urine Clarity Clear Urine pH 7.0 (<5.0-8.0) Urine Specific [place] 1.015 (1.000-1.030) Urine Protein Negative mg/dL (NEG-TRACE) Urine Glucose (UA) Negative mg/dL (NEG) Urine Ketones (Stick) Negative mg/dL (NEG) Urine Blood Negative (NEG) Urine Nitrite Negative (NEG) Urine Bilirubin Negative (NEG) Urine Urobilinogen Dipstick 0.2 mg/dL (0.2 mg/dL) Urine Leukocyte Esterase Trace (NEG) Urine RBC 0 /HPF (0-2) Urine WBC 5-10 /HPF (0-4) Urine Squamous Epithelial Cells Few /LPF Urine Amorphous Sediment Present /HPF Urine Bacteria Few /HPF (0-FEW) Urine Hyaline Casts Occasional /HPF Urine Mucus Slight /LPF White Blood Count 3.1 x10^3/uL (4.0-11.0) Red Blood Count 4.73 x10^6/uL (4.30-5.70) Hemoglobin 14.1 g/dL (13.0-17.5) Hematocrit 41.3 % (39.0-53.0) Mean Corpuscular Volume 87 fL (79-100) Mean Corpuscular Hemoglobin 30 pg (25-35) Mean Corpuscular Hemoglobin Concent 34 g/dL (31-37) Red Cell Distribution Width 13.1 % (11.5-14.5) Platelet Count 190 x10^3/uL (140-400) Neutrophils (%) (Auto) 48 % (31-73) Lymphocytes (%) (Auto) 42 % (24-48) Monocytes (%) (Auto) 9 % (0-9) Eosinophils (%) (Auto) 1 % (0-3) Basophils (%) (Auto) 1 % (0-3) Neutrophils # (Auto) 1.5 x10^3/uL (1.8-7.7) Lymphocytes # (Auto) 1.3 x10^3/uL (1.0-4.8) Monocytes # (Auto) 0.3 x10^3/uL (0.0-1.1) Eosinophils # (Auto) 0.0 x10^3/uL (0.0-0.7) Basophils # (Auto) 0.0 x10^3/uL (0.0-0.2) Sodium Level 142 mmol/L (136-145) Potassium Level 3.9 mmol/L (3.5-5.1) Chloride Level 105 mmol/L (98-107) Carbon Dioxide Level 31 mmol/L (21-32) Anion Gap 6 (6-14) Blood Urea Nitrogen 12 mg/dL (8-26) Creatinine 1.1 mg/dL (0.7-1.3) Estimated GFR (Cockcroft-Gault) 86.2 BUN/Creatinine Ratio 11 (6-20) Glucose Level 92 mg/dL (70-99) Calcium Level 8.8 mg/dL (8.5-10.1) Total Bilirubin 0.4 mg/dL (0.2-1.0) Aspartate Amino Transf (AST/SGOT) 14 U/L (15-37) Alanine Aminotransferase (ALT/SGPT) 15 U/L (16-63) Alkaline Phosphatase 58 U/L (46-116) Total Protein 7.2 g/dL (6.4-8.2) Albumin 4.0 g/dL (3.4-5.0) Albumin/Globulin Ratio 1.3 (1.0-1.7) Lipase 347 U/L (73-393) SARS-CoV-2 Antigen (Rapid) Negative (NEGATIVE) Assessment and Plan Assessmemt and Plan Problems Medical Problems: (1) Abdominal pain, right lower quadrant Status: Acute (2) Intussusception of small bowel Status: Acute (3) Leukopenia Status: Acute (4) Neutropenia Status: Acute Comment Review of Relevant I have reviewed the following items dipesh (where applicable) has been applied. Labs Laboratory Tests Test 02/14/20 10:30 02/14/20 11:33 02/14/20 14:32 Urine Collection Type Unknown Urine Color Yellow Urine Clarity Clear Urine pH 7.0 (<5.0-8.0) Urine Specific [place] 1.015 (1.000-1.030) Urine Protein Negative mg/dL (NEG-TRACE) Urine Glucose (UA) Negative mg/dL (NEG) Urine Ketones (Stick) Negative mg/dL (NEG) Urine Blood Negative (NEG) Urine Nitrite Negative (NEG) Urine Bilirubin Negative (NEG) Urine Urobilinogen Dipstick 0.2 mg/dL (0.2 mg/dL) Urine Leukocyte Esterase Trace (NEG) Urine RBC 0 /HPF (0-2) Urine WBC 5-10 /HPF (0-4) Urine Squamous Epithelial Cells Few /LPF Urine Amorphous Sediment Present /HPF Urine Bacteria Few /HPF (0-FEW) Urine Hyaline Casts Occasional /HPF Urine Mucus Slight /LPF White Blood Count 3.1 x10^3/uL (4.0-11.0) Red Blood Count 4.73 x10^6/uL (4.30-5.70) Hemoglobin 14.1 g/dL (13.0-17.5) Hematocrit 41.3 % (39.0-53.0) Mean Corpuscular Volume 87 fL (79-100) Mean Corpuscular Hemoglobin 30 pg (25-35) Mean Corpuscular Hemoglobin Concent 34 g/dL (31-37) Red Cell Distribution Width 13.1 % (11.5-14.5) Platelet Count 190 x10^3/uL (140-400) Neutrophils (%) (Auto) 48 % (31-73) Lymphocytes (%) (Auto) 42 % (24-48) Monocytes (%) (Auto) 9 % (0-9) Eosinophils (%) (Auto) 1 % (0-3) Basophils (%) (Auto) 1 % (0-3) Neutrophils # (Auto) 1.5 x10^3/uL (1.8-7.7) Lymphocytes # (Auto) 1.3 x10^3/uL (1.0-4.8) Monocytes # (Auto) 0.3 x10^3/uL (0.0-1.1) Eosinophils # (Auto) 0.0 x10^3/uL (0.0-0.7) Basophils # (Auto) 0.0 x10^3/uL (0.0-0.2) Sodium Level 142 mmol/L (136-145) Potassium Level 3.9 mmol/L (3.5-5.1) Chloride Level 105 mmol/L (98-107) Carbon Dioxide Level 31 mmol/L (21-32) Anion Gap 6 (6-14) Blood Urea Nitrogen 12 mg/dL (8-26) Creatinine 1.1 mg/dL (0.7-1.3) Estimated GFR (Cockcroft-Gault) 86.2 BUN/Creatinine Ratio 11 (6-20) Glucose Level 92 mg/dL (70-99) Calcium Level 8.8 mg/dL (8.5-10.1) Total Bilirubin 0.4 mg/dL (0.2-1.0) Aspartate Amino Transf (AST/SGOT) 14 U/L (15-37) Alanine Aminotransferase (ALT/SGPT) 15 U/L (16-63) Alkaline Phosphatase 58 U/L (46-116) Total Protein 7.2 g/dL (6.4-8.2) Albumin 4.0 g/dL (3.4-5.0) Albumin/Globulin Ratio 1.3 (1.0-1.7) Lipase 347 U/L (73-393) SARS-CoV-2 Antigen (Rapid) Negative (NEGATIVE) Laboratory Tests Test 02/14/20 10:30 02/14/20 11:33 02/14/20 14:32 Urine Collection Type Unknown Urine Color Yellow Urine Clarity Clear Urine pH 7.0 (<5.0-8.0) Urine Specific [place] 1.015 (1.000-1.030) Urine Protein Negative mg/dL (NEG-TRACE) Urine Glucose (UA) Negative mg/dL (NEG) Urine Ketones (Stick) Negative mg/dL (NEG) Urine Blood Negative (NEG) Urine Nitrite Negative (NEG) Urine Bilirubin Negative (NEG) Urine Urobilinogen Dipstick 0.2 mg/dL (0.2 mg/dL) Urine Leukocyte Esterase Trace (NEG) Urine RBC 0 /HPF (0-2) Urine WBC 5-10 /HPF (0-4) Urine Squamous Epithelial Cells Few /LPF Urine Amorphous Sediment Present /HPF Urine Bacteria Few /HPF (0-FEW) Urine Hyaline Casts Occasional /HPF Urine Mucus Slight /LPF White Blood Count 3.1 x10^3/uL (4.0-11.0) Red Blood Count 4.73 x10^6/uL (4.30-5.70) Hemoglobin 14.1 g/dL (13.0-17.5) Hematocrit 41.3 % (39.0-53.0) Mean Corpuscular Volume 87 fL (79-100) Mean Corpuscular Hemoglobin 30 pg (25-35) Mean Corpuscular Hemoglobin Concent 34 g/dL (31-37) Red Cell Distribution Width 13.1 % (11.5-14.5) Platelet Count 190 x10^3/uL (140-400) Neutrophils (%) (Auto) 48 % (31-73) Lymphocytes (%) (Auto) 42 % (24-48) Monocytes (%) (Auto) 9 % (0-9) Eosinophils (%) (Auto) 1 % (0-3) Basophils (%) (Auto) 1 % (0-3) Neutrophils # (Auto) 1.5 x10^3/uL (1.8-7.7) Lymphocytes # (Auto) 1.3 x10^3/uL (1.0-4.8) Monocytes # (Auto) 0.3 x10^3/uL (0.0-1.1) Eosinophils # (Auto) 0.0 x10^3/uL (0.0-0.7) Basophils # (Auto) 0.0 x10^3/uL (0.0-0.2) Sodium Level 142 mmol/L (136-145) Potassium Level 3.9 mmol/L (3.5-5.1) Chloride Level 105 mmol/L (98-107) Carbon Dioxide Level 31 mmol/L (21-32) Anion Gap 6 (6-14) Blood Urea Nitrogen 12 mg/dL (8-26) Creatinine 1.1 mg/dL (0.7-1.3) Estimated GFR (Cockcroft-Gault) 86.2 BUN/Creatinine Ratio 11 (6-20) Glucose Level 92 mg/dL (70-99) Calcium Level 8.8 mg/dL (8.5-10.1) Total Bilirubin 0.4 mg/dL (0.2-1.0) Aspartate Amino Transf (AST/SGOT) 14 U/L (15-37) Alanine Aminotransferase (ALT/SGPT) 15 U/L (16-63) Alkaline Phosphatase 58 U/L (46-116) Total Protein 7.2 g/dL (6.4-8.2) Albumin 4.0 g/dL (3.4-5.0) Albumin/Globulin Ratio 1.3 (1.0-1.7) Lipase 347 U/L (73-393) SARS-CoV-2 Antigen (Rapid) Negative (NEGATIVE) Medications Current Medications Iohexol (Omnipaque 300 Mg/ml) 75 ml 1X ONCE IV Last administered on 02/14/20at 12:25; Start 02/14/20 at 12:30; Stop 02/14/20 at 12:31; Status DC Info (CONTRAST GIVEN -- Rx MONITORING) 1 each PRN DAILY PRN MC SEE COMMENTS; Start 02/14/20 at 12:00; Stop 02/16/20 at 11:59 Acetaminophen/ Hydrocodone Bitart (Lortab 5/325) 1 tab PRN Q6HRS PRN PO PAIN; Start 02/14/20 at 14:45 Sodium Chloride 1,000 ml @ 100 mls/hr Q10H IV Last administered on 02/15/20at 02:50; Start 02/14/20 at 14:36 Ondansetron HCl (Zofran) 4 mg PRN Q4HRS PRN IV NAUSEA/VOMITING; Start 02/14/20 at 14:45 Zolpidem Tartrate (Ambien) 5 mg PRN QHS PRN PO INSOMNIA Last administered on 02/14/20at 22:35; Start 02/14/20 at 14:45 Acetaminophen (Tylenol) 650 mg PRN Q4HRS PRN PO TEMP OVER 100.4F OR MILD PAIN; Start 02/14/20 at 14:45 Docusate Sodium (Colace) 100 mg PRN BID PRN PO HARD STOOLS; Start 02/14/20 at 14:45 Albuterol Sulfate (Ventolin Neb Soln) 2.5 mg PRN Q4HRS PRN NEB SHORTNESS OF BREATH; Start 02/14/20 at 14:45 Guaifenesin (Robitussin) 200 mg PRN Q4HRS PRN PO COUGH; Start 02/14/20 at 14:45 Lorazepam (Ativan) 0.5 mg PRN Q4HRS PRN PO ANXIETY / AGITATION; Start 02/14/20 at 14:45 Enoxaparin Sodium (Lovenox 40mg Syringe) 40 mg Q24H SQ Last administered on 02/14/20at 16:01; Start 02/14/20 at 15:00 Ketorolac Tromethamine (Toradol 15mg Vial) 15 mg PRN Q6HRS PRN IVP moderate to severe pain; Start 02/14/20 at 15:00; Stop 02/19/20 at 14:59 Iohexol (Omnipaque 300 Mg/ml) 100 ml STK-MED ONCE .ROUTE ; Start 02/14/20 at 17:08; Stop 02/14/20 at 17:08; Status DC Info (FLU VACCINE SCREEN per RX) 1 each PRN 1X PRN MC SEE COMMENTS; Start 02/14/20 at 19:15; Status UNV Influenza Virus Vaccine Quadrival (Fluzone Quad Syringe) 0.5 ml ONCE ONCE VAX IM ; Start 02/14/20 at 21:00; Stop 02/14/20 at 21:01; Status DC Barium Sulfate (Liquid E-Z Paque) 710 ml 1X ONCE PO Last administered on 10/7/20at 08:35; Start 02/15/20 at 07:45; Stop 02/15/20 at 07:46; Status DC Active Scripts Active Reported No Known Medications Prior To Admisstion (Info) Each 1 Each DAILY Vitals/I & O Vital Sign - Last 24 Hours 02/14/20 02/14/20 02/14/20 02/14/20 10:10 12:15 14:01 14:31 Temp 98.5 98.5 Pulse 69 62 62 62 Resp 16 16 16 16 B/P (MAP) 123/72 (89) 110/66 (81) 115/66 (82) 115/76 (89) Pulse Ox 99 99 99 99 O2 Delivery Room Air Room Air Room Air 02/14/20 02/14/20 02/14/20 02/14/20 15:20 16:01 16:08 17:52 Pulse 60 60 Resp 16 16 B/P (MAP) 110/64 (79) 115/72 (86) Pulse Ox 99 99 99 O2 Delivery Room Air Room Air Room Air Room Air 02/14/20 02/14/20 02/14/20 02/14/20 17:55 19:00 20:00 22:51 Temp 98.0 98.5 98.0 98.5 Pulse 75 74 60 Resp 16 18 20 B/P (MAP) 126/76 (93) 111/59 (76) 112/63 (79) Pulse Ox 100 98 97 O2 Delivery Room Air Room Air Room Air Room Air 02/15/20 02/15/20 03:00 07:00 Temp 97.6 98.4 97.6 98.4 Pulse 63 64 Resp 20 20 B/P (MAP) 120/64 (82) 104/60 (75) Pulse Ox 96 98 O2 Delivery Room Air Room Air Intake and Output 02/14/20 02/14/20 02/15/20 15:00 23:00 07:00 Intake Total 1000 ml Balance 1000 ml Justicifation of Admission Dx: Justifications for Admission: Justification of Admission Dx: CHUCK Sheehan MD Feb 15, 2020 08:46
--- NOTE | 2020-02-15 09:31 | NUR ---
SW following. Discussed with RN, pt from home, room air, NPO, COVID-19 negative. Pt having a small bowel series today. SW will continue to follow.
--- NOTE | 2020-02-15 10:45 | RAD ---
EXAM: SMALL BOWEL SERIES 02/15/2020 5:00 AM CLINICAL INDICATION:Intussusception on CT COMPARISON:CT abdomen and pelvis 02/14/2020 TECHNIQUE:[employer] image was obtained. The patient drank barium and serial overhead radiographs were obtained at 20 minute intervals. Intermittent fluoroscopy with compression of the small bowel was performed. FINDINGS:No evidence of intussusception. Small bowel is normal in appearance. Loops of small bowel in the left upper quadrant disperse normally with compression. No small bowel obstruction. Barium reaches the colon by 80 minutes. Total fluoroscopic time 3 minutes. 13 images acquired. IMPRESSION:Normal small bowel. No evidence of intussusception. Electronically signed by: Alba Dunn MD (02/15/2020 10:42 AM) [id number]
[2020-02-15 11:00] VITALS: BP_SYST 117; BP_SYST 122; BP_DIAS 73; BP_DIAS 74
--- NOTE | 2020-02-15 11:59 | PDOC ---
PROGRESS NOTES Date of Service DATE: 02/15/20 TIME: 11:58 Subjective Subjective feels well, no pain Objective Objective Vital Signs Date Time Temp Pulse Resp B/P (MAP) Pulse Ox O2 Delivery O2 Flow Rate FiO2 02/15/20 11:00 98.1 71 19 117/73 (88) 99 Room Air 98.1 Intake and Output 02/15/20 07:00 Intake Total 1000 ml Balance 1000 ml IV Total 1000 ml Physical Exam Abdomen: Soft, No tenderness Heart: Regular rate Extremities: No clubbing, No cyanosis General: Alert, Oriented X3 Lungs: Clear to auscultation Neuro: Normal speech Assessment Assessment Problems Medical Problems: (1) Abdominal pain, right lower quadrant Status: Acute (2) Intussusception of small bowel Status: Acute (3) Leukopenia Status: Acute (4) Neutropenia Status: Acute Plan Plan of Care SB series normal, no intussusception, suspect CT finding transient; advance diet, ok to discharge Comment Review of Relevant I have reviewed the following items dipesh (where applicable) has been applied. Labs Laboratory Tests Test 02/14/20 10:30 02/14/20 11:33 02/14/20 14:32 Urine Collection Type Unknown Urine Color Yellow Urine Clarity Clear Urine pH 7.0 (<5.0-8.0) Urine Specific [place] 1.015 (1.000-1.030) Urine Protein Negative mg/dL (NEG-TRACE) Urine Glucose (UA) Negative mg/dL (NEG) Urine Ketones (Stick) Negative mg/dL (NEG) Urine Blood Negative (NEG) Urine Nitrite Negative (NEG) Urine Bilirubin Negative (NEG) Urine Urobilinogen Dipstick 0.2 mg/dL (0.2 mg/dL) Urine Leukocyte Esterase Trace (NEG) Urine RBC 0 /HPF (0-2) Urine WBC 5-10 /HPF (0-4) Urine Squamous Epithelial Cells Few /LPF Urine Amorphous Sediment Present /HPF Urine Bacteria Few /HPF (0-FEW) Urine Hyaline Casts Occasional /HPF Urine Mucus Slight /LPF White Blood Count 3.1 x10^3/uL (4.0-11.0) Red Blood Count 4.73 x10^6/uL (4.30-5.70) Hemoglobin 14.1 g/dL (13.0-17.5) Hematocrit 41.3 % (39.0-53.0) Mean Corpuscular Volume 87 fL (79-100) Mean Corpuscular Hemoglobin 30 pg (25-35) Mean Corpuscular Hemoglobin Concent 34 g/dL (31-37) Red Cell Distribution Width 13.1 % (11.5-14.5) Platelet Count 190 x10^3/uL (140-400) Neutrophils (%) (Auto) 48 % (31-73) Lymphocytes (%) (Auto) 42 % (24-48) Monocytes (%) (Auto) 9 % (0-9) Eosinophils (%) (Auto) 1 % (0-3) Basophils (%) (Auto) 1 % (0-3) Neutrophils # (Auto) 1.5 x10^3/uL (1.8-7.7) Lymphocytes # (Auto) 1.3 x10^3/uL (1.0-4.8) Monocytes # (Auto) 0.3 x10^3/uL (0.0-1.1) Eosinophils # (Auto) 0.0 x10^3/uL (0.0-0.7) Basophils # (Auto) 0.0 x10^3/uL (0.0-0.2) Sodium Level 142 mmol/L (136-145) Potassium Level 3.9 mmol/L (3.5-5.1) Chloride Level 105 mmol/L (98-107) Carbon Dioxide Level 31 mmol/L (21-32) Anion Gap 6 (6-14) Blood Urea Nitrogen 12 mg/dL (8-26) Creatinine 1.1 mg/dL (0.7-1.3) Estimated GFR (Cockcroft-Gault) 86.2 BUN/Creatinine Ratio 11 (6-20) Glucose Level 92 mg/dL (70-99) Calcium Level 8.8 mg/dL (8.5-10.1) Total Bilirubin 0.4 mg/dL (0.2-1.0) Aspartate Amino Transf (AST/SGOT) 14 U/L (15-37) Alanine Aminotransferase (ALT/SGPT) 15 U/L (16-63) Alkaline Phosphatase 58 U/L (46-116) Total Protein 7.2 g/dL (6.4-8.2) Albumin 4.0 g/dL (3.4-5.0) Albumin/Globulin Ratio 1.3 (1.0-1.7) Lipase 347 U/L (73-393) SARS-CoV-2 Antigen (Rapid) Negative (NEGATIVE) Laboratory Tests Test 02/14/20 14:32 SARS-CoV-2 Antigen (Rapid) Negative (NEGATIVE) Microbiology 02/14/20 Urine Culture - Final, Complete Medications Current Medications Iohexol (Omnipaque 300 Mg/ml) 75 ml 1X ONCE IV Last administered on 02/14/20at 12:25; Start 02/14/20 at 12:30; Stop 02/14/20 at 12:31; Status DC Info (CONTRAST GIVEN -- Rx MONITORING) 1 each PRN DAILY PRN MC SEE COMMENTS; Start 02/14/20 at 12:00; Stop 02/16/20 at 11:59 Acetaminophen/ Hydrocodone Bitart (Lortab 5/325) 1 tab PRN Q6HRS PRN PO MODERATE-SEVERE PAIN; Start 02/14/20 at 14:45 Sodium Chloride 1,000 ml @ 100 mls/hr Q10H IV Last administered on 02/15/20at 02:50; Start 02/14/20 at 14:36 Ondansetron HCl (Zofran) 4 mg PRN Q4HRS PRN IV NAUSEA/VOMITING; Start 02/14/20 at 14:45 Zolpidem Tartrate (Ambien) 5 mg PRN QHS PRN PO INSOMNIA Last administered on 02/14/20at 22:35; Start 02/14/20 at 14:45 Acetaminophen (Tylenol) 650 mg PRN Q4HRS PRN PO TEMP OVER 100.4F OR MILD PAIN; Start 02/14/20 at 14:45 Docusate Sodium (Colace) 100 mg PRN BID PRN PO HARD STOOLS; Start 02/14/20 at 14:45 Albuterol Sulfate (Ventolin Neb Soln) 2.5 mg PRN Q4HRS PRN NEB SHORTNESS OF BREATH; Start 02/14/20 at 14:45 Guaifenesin (Robitussin) 200 mg PRN Q4HRS PRN PO COUGH; Start 02/14/20 at 14:45 Lorazepam (Ativan) 0.5 mg PRN Q4HRS PRN PO ANXIETY / AGITATION; Start 02/14/20 at 14:45 Enoxaparin Sodium (Lovenox 40mg Syringe) 40 mg Q24H SQ Last administered on 02/14/20at 16:01; Start 02/14/20 at 15:00 Ketorolac Tromethamine (Toradol 15mg Vial) 15 mg PRN Q6HRS PRN IVP moderate to severe pain; Start 02/14/20 at 15:00; Stop 02/19/20 at 14:59 Iohexol (Omnipaque 300 Mg/ml) 100 ml STK-MED ONCE .ROUTE ; Start 02/14/20 at 17:08; Stop 02/14/20 at 17:08; Status DC Info (FLU VACCINE SCREEN per RX) 1 each PRN 1X PRN MC SEE COMMENTS; Start 02/14/20 at 19:15; Status UNV Influenza Virus Vaccine Quadrival (Fluzone Quad Syringe) 0.5 ml ONCE ONCE VAX IM Last administered on 02/15/20at 11:35; Start 02/14/20 at 21:00; Stop 02/14/20 at 21:01; Status DC Barium Sulfate (Liquid E-Z Paque) 710 ml 1X ONCE PO Last administered on 02/15/20at 08:35; Start 02/15/20 at 07:45; Stop 02/15/20 at 07:46; Status DC Active Scripts Active Reported No Known Medications Prior To Admisstion (Info) Each 1 Each DAILY Vitals/I & O Vital Sign - Last 24 Hours 02/14/20 02/14/20 02/14/20 02/14/20 12:15 14:01 14:31 15:20 Pulse 62 62 62 60 Resp 16 16 16 16 B/P (MAP) 110/66 (81) 115/66 (82) 115/76 (89) 110/64 (79) Pulse Ox 99 99 99 99 O2 Delivery Room Air Room Air Room Air 02/14/20 02/14/20 02/14/20 02/14/20 16:01 16:08 17:52 17:55 Pulse 60 75 Resp 16 16 B/P (MAP) 115/72 (86) 126/76 (93) Pulse Ox 99 99 100 O2 Delivery Room Air Room Air Room Air Room Air 02/14/20 02/14/20 02/14/20 02/15/20 19:00 20:00 22:51 03:00 Temp 98.0 98.5 97.6 98.0 98.5 97.6 Pulse 74 60 63 Resp 18 20 20 B/P (MAP) 111/59 (76) 112/63 (79) 120/64 (82) Pulse Ox 98 97 96 O2 Delivery Room Air Room Air Room Air Room Air 02/15/20 02/15/20 07:00 11:00 Temp 98.4 98.1 98.4 98.1 Pulse 64 71 Resp 20 19 B/P (MAP) 104/60 (75) 117/73 (88) Pulse Ox 98 99 O2 Delivery Room Air Room Air Intake and Output 02/14/20 02/14/20 02/15/20 15:00 23:00 07:00 Intake Total 1000 ml Balance 1000 ml Justifications for Admission Other Justification MISBAH BROWN MD Feb 15, 2020 11:59
--- NOTE | 2020-02-15 12:55 | PDOC3 ---
Discharge Summary Date of Admission: Feb 14, 2020 Date of Discharge: Feb 15, 2020 Follow-Up: 3-5 days Admitting Diagnosis comment: discharge dx Assessment/Plan Intussuseption ON CT Small bowel intussusception in the left hemiabdomen measuring approximately 7 cm in length. This is of uncertain clinical significance, and can be seen as a transient/incidental phenomenon in a patient of this age. Normal small bowel SERIES . No evidence of intussusception. 02-14 Leukopenia TO SEE pcp soon about this Plan follow conulstant recommendations. pain management symptomstic relief of symptoms. DVT prophylaxiss with lovenox d/c home 02-14 d/c planning 25 min Justifications for Admission Justifications for Admission Other Justification History of Present Illness History of Present Illness History of Present Illness History of Present Illness Patient is a 19 year old male whto was in his usual state of health until the morning of his admission when he presented sudden onset of right lower quadrant pain , patient denied dietary transgression, no sick contacts, no travel outside the area, patient denies fever chills or diaphoresis, no hematochezia, no association with food intake, patient at the time of my visit is in no apparent distress, he was flund to have an intussuseption on CT abdomen reason why we were asked to admit patient. Patient had a simialr episode more or less 2 years ago and feel it is a reocurrence of the previous episode. he was treated with IV antibiotics on his past episode. No definitive diagnosis was given to alex at that time. Patient was informed about the different avenues that need to be examined so we can try to alleviate the patien's suffering. He denies history of Crohn or UC, no anorexia no loss of common sense or smell. Patient will be admitted for further evaluation and treatment Past Medical History Past Medical History No pertinent past medical history Past Surgical History Past Surgical History: Other Family History Family History: No Significant Social History Smoke: No Drugs: Marijuana Current Problem List Problem List Problems Medical Problems: (1) Abdominal pain, right lower quadrant Status: Acute (2) Intussusception of small bowel Status: Acute (3) Leukopenia Status: Acute (4) Neutropenia Status: Acute Vitals Vitals Vital Signs Date Time Temp Pulse Resp B/P (MAP) Pulse Ox O2 Delivery O2 Flow Rate FiO2 02/15/20 07:00 98.4 64 20 104/60 (75) 98 Room Air 98.4 Physical Exam General: Alert, Oriented X3, Cooperative, No acute distress Heart: Regular rate Lungs: Clear Abdomen: Normal bowel sounds, Soft, No tenderness, No masses Extremities: No clubbing, No cyanosis Skin: No rashes, No breakdown FINAL DIAGNOSIS Problems Medical Problems: (1) Abdominal pain, right lower quadrant Status: Acute (2) Intussusception of small bowel Status: Acute (3) Leukopenia Status: Acute (4) Neutropenia Status: Acute Brief Hospital Course Mr. Martinez is a 19 old [sex] who presented with [ abd pain ] CONDITION AT DISCHARGE: Improved Discharge Medications Current Medications Iohexol (Omnipaque 300 Mg/ml) 75 ml 1X ONCE IV Last administered on 02/14/20at 12:25; Start 02/14/20 at 12:30; Stop 02/14/20 at 12:31; Status DC Info (CONTRAST GIVEN -- Rx MONITORING) 1 each PRN DAILY PRN MC SEE COMMENTS; Start 02/14/20 at 12:00; Stop 02/16/20 at 11:59 Acetaminophen/ Hydrocodone Bitart (Lortab 5/325) 1 tab PRN Q6HRS PRN PO MODERATE-SEVERE PAIN; Start 02/14/20 at 14:45 Sodium Chloride 1,000 ml @ 100 mls/hr Q10H IV Last administered on 02/15/20at 02:50; Start 02/14/20 at 14:36 Ondansetron HCl (Zofran) 4 mg PRN Q4HRS PRN IV NAUSEA/VOMITING; Start 02/14/20 at 14:45 Zolpidem Tartrate (Ambien) 5 mg PRN QHS PRN PO INSOMNIA Last administered on 02/14/20at 22:35; Start 02/14/20 at 14:45 Acetaminophen (Tylenol) 650 mg PRN Q4HRS PRN PO TEMP OVER 100.4F OR MILD PAIN; Start 02/14/20 at 14:45 Docusate Sodium (Colace) 100 mg PRN BID PRN PO HARD STOOLS; Start 02/14/20 at 14:45 Albuterol Sulfate (Ventolin Neb Soln) 2.5 mg PRN Q4HRS PRN NEB SHORTNESS OF BREATH; Start 02/14/20 at 14:45 Guaifenesin (Robitussin) 200 mg PRN Q4HRS PRN PO COUGH; Start 02/14/20 at 14:45 Lorazepam (Ativan) 0.5 mg PRN Q4HRS PRN PO ANXIETY / AGITATION; Start 02/14/20 at 14:45 Enoxaparin Sodium (Lovenox 40mg Syringe) 40 mg Q24H SQ Last administered on 02/14/20at 16:01; Start 02/14/20 at 15:00 Ketorolac Tromethamine (Toradol 15mg Vial) 15 mg PRN Q6HRS PRN IVP moderate to severe pain; Start 02/14/20 at 15:00; Stop 02/19/20 at 14:59 Iohexol (Omnipaque 300 Mg/ml) 100 ml STK-MED ONCE .ROUTE ; Start 02/14/20 at 17:08; Stop 02/14/20 at 17:08; Status DC Info (FLU VACCINE SCREEN per RX) 1 each PRN 1X PRN SEE COMMENTS; Start 02/14/20 at 19:15; Status UNV Influenza Virus Vaccine Quadrival (Fluzone Quad Syringe) 0.5 ml ONCE ONCE VAX IM Last administered on 02/15/20at 11:35; Start 02/14/20 at 21:00; Stop 02/14/20 at 21:01; Status DC Barium Sulfate (Liquid E-Z Paque) 710 ml 1X ONCE PO Last administered on 02/15/20at 08:35; Start 02/15/20 at 07:45; Stop 02/15/20 at 07:46; Status DC Active Scripts Active Reported No Known Medications Prior To Admisstion (Info) Each 1 Each DAILY Vital Signs Vital Signs Date Time Temp Pulse Resp B/P (MAP) Pulse Ox O2 Delivery O2 Flow Rate FiO2 02/15/20 11:00 98.1 71 19 117/73 (88) 99 Room Air 98.1 Labs Laboratory Tests Test 02/14/20 10:30 02/14/20 11:33 02/14/20 14:32 Urine Collection Type Unknown Urine Color Yellow Urine Clarity Clear Urine pH 7.0 (<5.0-8.0) Urine Specific D[place]mer 1.015 (1.000-1.030) Urine Protein Negative mg/dL (NEG-TRACE) Urine Glucose (UA) Negative mg/dL (NEG) Urine Ketones (Stick) Negative mg/dL (NEG) Urine Blood Negative (NEG) Urine Nitrite Negative (NEG) Urine Bilirubin Negative (NEG) Urine Urobilinogen Dipstick 0.2 mg/dL (0.2 mg/dL) Urine Leukocyte Esterase Trace (NEG) Urine RBC 0 /HPF (0-2) Urine WBC 5-10 /HPF (0-4) Urine Squamous Epithelial Cells Few /LPF Urine Amorphous Sediment Present /HPF Urine Bacteria Few /HPF (0-FEW) Urine Hyaline Casts Occasional /HPF Urine Mucus Slight /LPF White Blood Count 3.1 x10^3/uL (4.0-11.0) Red Blood Count 4.73 x10^6/uL (4.30-5.70) Hemoglobin 14.1 g/dL (13.0-17.5) Hematocrit 41.3 % (39.0-53.0) Mean Corpuscular Volume 87 fL (79-100) Mean Corpuscular Hemoglobin 30 pg (25-35) Mean Corpuscular Hemoglobin Concent 34 g/dL (31-37) Red Cell Distribution Width 13.1 % (11.5-14.5) Platelet Count 190 x10^3/uL (140-400) Neutrophils (%) (Auto) 48 % (31-73) Lymphocytes (%) (Auto) 42 % (24-48) Monocytes (%) (Auto) 9 % (0-9) Eosinophils (%) (Auto) 1 % (0-3) Basophils (%) (Auto) 1 % (0-3) Neutrophils # (Auto) 1.5 x10^3/uL (1.8-7.7) Lymphocytes # (Auto) 1.3 x10^3/uL (1.0-4.8) Monocytes # (Auto) 0.3 x10^3/uL (0.0-1.1) Eosinophils # (Auto) 0.0 x10^3/uL (0.0-0.7) Basophils # (Auto) 0.0 x10^3/uL (0.0-0.2) Sodium Level 142 mmol/L (136-145) Potassium Level 3.9 mmol/L (3.5-5.1) Chloride Level 105 mmol/L (98-107) Carbon Dioxide Level 31 mmol/L (21-32) Anion Gap 6 (6-14) Blood Urea Nitrogen 12 mg/dL (8-26) Creatinine 1.1 mg/dL (0.7-1.3) Estimated GFR (Cockcroft-Gault) 86.2 BUN/Creatinine Ratio 11 (6-20) Glucose Level 92 mg/dL (70-99) Calcium Level 8.8 mg/dL (8.5-10.1) Total Bilirubin 0.4 mg/dL (0.2-1.0) Aspartate Amino Transf (AST/SGOT) 14 U/L (15-37) Alanine Aminotransferase (ALT/SGPT) 15 U/L (16-63) Alkaline Phosphatase 58 U/L (46-116) Total Protein 7.2 g/dL (6.4-8.2) Albumin 4.0 g/dL (3.4-5.0) Albumin/Globulin Ratio 1.3 (1.0-1.7) Lipase 347 U/L (73-393) SARS-CoV-2 Antigen (Rapid) Negative (NEGATIVE) Laboratory Tests Test 02/14/20 14:32 SARS-CoV-2 Antigen (Rapid) Negative (NEGATIVE) Allergies Allergies Coded Allergies Type Severity Reaction Last Updated Verified No Known Drug Allergies 01/29/18 No Disposition/Orders: D/C to Home Justicifation of Admission Dx: Justifications for Admission: Justification of Admission Dx: No CHUCK GUERRA MD Feb 15, 2020 12:55
[2020-02-15] MEDS ORDERED: DOCU-153 PO (12:56)
--- NOTE | 2020-02-15 12:57 | DISCH ---
DISCHARGE INSTRUCTIONS Condition on Discharge Condition on Discharge: Stable Activity After Discharge Activity Instructions for Disc: Activity as tolerated Lifting Instructions after Dis: No heavy lifting, No pulling or pushing Exercise Instruction after Dis: Walk 10 min, 3 x per day Driving Instructions after Dis: Do not drive today Diet after Discharge Diet after Discharge: Regular Liquid Texture: Thin Liquid Contacting the DRRubi after DC Call your doctor for: If your condition worsens Follow-Up Follow up with: pcp CHUCK Gant MD Feb 15, 2020 12:57
== END 2020-02-15 15:05 | disposition home or self-care (01) ==
LOC: ER 10:07 → 4 NORTH 14:40
PROVIDERS: ADMIT Internal Medicine; ATTEND Internal Medicine
DX: K56.1 Intussusception (principal); Z20.828 Contact with and (suspected) exposure to other viral communicable diseases; D72.819 Decreased white blood cell count, unspecified; R10.31 Right lower quadrant pain; Z23 Encounter for immunization
CPT/HCPCS: 36415; 74177; 74250; 80053; 81001; 83690; 85025; 87086; 87426; 90471; 90686; 96360; 96361; 96372; 99285; G0378; J1650; J7030; Q9967; U0003; G0379